=== PATIENT | male | born 1990 | race Caucasian/White ===

== ENCOUNTER → 2023-09-20 | Outpatient (CLI) | payer OTHER, SELFPAY ==
--- NOTE | 2023-09-20 09:08 | CT_ITS ---
STUDY: CT ABDOMEN AND PELVIS WITHOUT CONTRAST REASON FOR EXAM: Male, 33 years old. CALCULUS OF URETER RADIATION DOSAGE (If Supplied By Facility): CTDIvol = ( 12.96 ) mGy, DLP = ( 751.44 ) mGycm TECHNIQUE: Transaxial images were obtained from the dome of the diaphragm to the symphysis pubis without oral contrast, and without intravenous contrast. Sagittal and coronal images were reconstructed. Individualized dose optimization techniques were used for this CT. COMPARISON: None. FINDINGS: The visualized lung bases are unremarkable. The visualized portions of the heart are within normal limits. Normal liver. Normal gallbladder and extrahepatic biliary system. Normal spleen. Normal pancreas. There is a small, circumscribed, smooth, low attenuation right adrenal mass, consistent with an adrenal adenoma. Normal left adrenal gland. This measures 1.7 cm. There is a 4.3 mm calculus at the right ureteral pelvic junction causing mild degree of right hydronephrosis. Tiny nonobstructive intrarenal calculi in the lower pole calyx of the left kidney. Normal visualized stomach. Normal small intestine. Normal colon. The appendix is visualized and appears normal. Normal abdominal aorta. Normal inferior vena cava. Normal retroperitoneum. Normal urinary bladder. There is a 6.1 mm calculus at the base of the bladder on the right side suggestive of a recently passed calculus. There is a right-sided inguinal hernia containing adipose tissue. Disc space narrowing and the posterior spondylosis at the L3-L4 level causing moderate to severe degree of spinal stenosis. Clinical correlation is recommended. CT/Abdomen/Pelvis without Cont IMPRESSION: 4.3 mm calculus at the right ureteropelvic junction causing mild degree of right hydronephrosis. There is a 6.1 mm calculus at the base of the bladder on the right side suggestive of a recently passed calculus. Spinal stenosis due to posterior osteophyte at the L3-L4 level. Clinical correlation recommended. Electronically Signed: Stefan Saini MD at 9:49 EDT ,
== END | disposition home or self-care (01) ==
PROVIDERS: PCP Family Medicine; Referring Provider Urology; Visit Provider Urology
DX: N20.1 Calculus of ureter (principal)
CPT/HCPCS: 74176

== ENCOUNTER → 2023-10-05 | Outpatient (CLI) | payer OTHER, SELFPAY ==
--- NOTE | 2023-10-05 14:17 | CT_ITS ---
INDICATION: Calculus of ureter EXAMINATION: CT ABDOMEN AND PELVIS WITHOUT CONTRAST - CT Abdomen And Pelvis W/O Contrast Injection TECHNIQUE: Helically acquired images were obtained of the abdomen and pelvis without oral or IV contrast. A radiation dose optimization technique was used for this scan. IV Contrast dosage and agent: None. Oral contrast: None. RADIATION DOSAGE (If Supplied By Facility): CTDIvol = ( 13 ) mGy, DLP = ( 683 ) mGycm COMPARISON: Prior study dated: 09/20/2023 FINDINGS: LOWER CHEST: Lung bases are clear. No cardiomegaly or pericardial effusion. LIVER: The liver is normal in size, shape, and attenuation. No focal mass. GALLBLADDER AND BILIARY TREE: The gallbladder is normally distended. No gallstones. No gallbladder wall thickening or edema. No intra- or extrahepatic biliary ductal dilation. PANCREAS: No focal cystic or solid mass. SPLEEN: Normal size without focal cystic or solid mass. ADRENAL GLANDS: No nodules. KIDNEYS AND URETERS: Normal renal size and position. Mild right hydroureteronephrosis. There is progression of the previously seen calculus at the level of the distal ureter. The calculus measures 0.5 cm. This is approximately 4 cm proximal to the ureterovesicular junction. There are 2 nonobstructing left lower pole renal calculi measuring 0.3 cm. PERITONEUM: No ascites or free air. No other fluid collection. BOWEL: The stomach is unremarkable. Normal caliber small bowel. No obstruction. No colonic wall thickening or inflammatory changes. No evidence of acute appendicitis. LYMPH NODES: No enlarged mesenteric or retroperitoneal lymph nodes. VESSELS: Aorta is non-dilated. URINARY BLADDER: Normally distended bladder without wall thickening. Redemonstration of a stone in the bladder measuring 0.5 cm. This is similar to prior. REPRODUCTIVE ORGANS: No pelvic masses. ABDOMINAL WALL: No discrete abdominal or pelvic wall hernia. BONES: No acute or suspicious osseous abnormality. CT/Abdomen/Pelvis without Cont IMPRESSION: Mild right hydroureteronephrosis. Progression of the previously seen ureteral calculus to the distal ureter. Redemonstration of a calculus in the bladder. Electronically Signed: James Antoine MD at 14:45 EDT ,
== END | disposition home or self-care (01) ==
LOC: CT 14:07
PROVIDERS: PCP Family Medicine; Referring Provider Urology; Visit Provider Urology
DX: N20.1 Calculus of ureter (principal)
CPT/HCPCS: 74176